=== PATIENT | female | born 1950 | race Asian ===

== ENCOUNTER → 2016-06-10 | Outpatient (CLI) | payer OTHER, MEDICARE | LOC: FIMAGING 11:35 | DX: Z12.31 Encounter for screening mammogram for malignant neoplasm of breast (principal) | CPT/HCPCS: G0202 ==

== ENCOUNTER → 2017-06-14 | Outpatient (CLI) | payer OTHER, MEDICARE | LOC: FIMAGING 08:51 | PROVIDERS: ATTEND Family Medicine | DX: Z12.31 Encounter for screening mammogram for malignant neoplasm of breast (principal) ==

== ENCOUNTER → 2017-08-07 | Outpatient (CLI) | payer OTHER, MEDICARE | LOC: FIMAGING 11:04 | PROVIDERS: ATTEND Family Medicine | DX: Z13.820 Encounter for screening for osteoporosis (principal); M85.89 Other specified disorders of bone density and structure, multiple sites; Z78.0 Asymptomatic menopausal state ==

== ENCOUNTER → 2018-06-15 | Outpatient (CLI) | payer OTHER, MEDICARE | LOC: FIMAGING 10:32 | PROVIDERS: ATTEND Family Medicine | DX: Z12.31 Encounter for screening mammogram for malignant neoplasm of breast (principal) ==